=== PATIENT | male | born 1975 | race African-American/Black ===

== ENCOUNTER 2020-08-01 17:37 | Outpatient (CLI) | payer BC, SELFPAY | END 2020-08-01 17:38 | disposition home or self-care (01) | LOC: ANHCOVIDVC 17:37 | PROVIDERS: PCP Internal Medicine | DX: Z23 Encounter for immunization (principal) | CPT/HCPCS: 0001A; 91300 ==

== ENCOUNTER 2020-08-22 16:41 | Outpatient (CLI) | payer BC, SELFPAY | END 2020-08-22 16:42 | disposition home or self-care (01) | LOC: ANHCOVIDVC 16:41 | PROVIDERS: PCP Internal Medicine | DX: Z23 Encounter for immunization (principal) | CPT/HCPCS: 0002A; 91300 ==

== ENCOUNTER 2024-12-25 19:06 | Emergency (ER) | payer OTHER, BC, SELFPAY ==
--- OUTSIDE RECORDS SUMMARY | 2024-12-25 19:08 | XMS_ITS | Clinical Summary ---
Author Organization [facility] Address [address] [place] [address] Care Team Providers Care Negotiations Director Name Role Phone Clinton Roberts MD Unavailable [phone] Unknown, Notinfile Unavailable Unavailable Osvaldo Ernandez MD Unavailable [phone] Jerel Mane MD Primary Care Provider Allergies No known active allergies Medications cyclobenzaprine (FLEXERIL) 10 mg tabletIndication s:Muscle Spasm Take 1 tablet (10 mg total) by mouth 3 (three) times a day as needed for muscle spasms 90 tablet 3 3 Active compression socks, large misc 10 Units daily 10 each 3 Active albuterol HFA (PROVENTIL HFA,VENTOLIN HFA,PROAIR HFA) 90 mcg/actuation inhalerIndicatio ns:Subacute cough Inhale 2 puffs every 6 (six) hours as needed for wheezing 3 each 4 4 Active irbesartan (AVAPRO) 150 mg tablet Take 1 tablet (150 mg total) by mouth nightly 30 tablet 11 4 12/28/19 25 Active sildenafiL (VIAGRA) 50 mg tablet Take 1 tablet (50 mg total) by mouth daily as needed for erectile dysfunction 30 tablet 3 4 Active metoprolol XL (TOPROL-XL) 50 mg extended release tablet TAKE 1 TABLET(50 MG) BY MOUTH DAILY 90 tablet 3 4 Active hydroCHLOROthiaz sen (HYDRODIURIL) 25 mg tablet TAKE 1 TABLET(25 MG) BY MOUTH DAILY 90 tablet 3 4 Active cholecalciferol (VITAMIN D-3) 2000 unit capsule Take 1 capsule (2,000 Units total) by mouth daily 90 capsule 3 5 06/19/19 26 Active acetaminophen (TYLENOL) 325 mg tabletIndication s:Fever,Pain Take 2 tablets (650 mg total) by mouth every 6 (six) hours as needed for pain 30 tablet 3 5 06/19/19 26 Active aspirin 81 mg chewable tabletIndication s:Myocardial Reinfarction Prevention Take 1 tablet (81 mg total) by mouth daily 30 tablet 11 5 06/19/19 26 Active amLODIPine (NORVASC) 10 mg tablet Take 1 tablet (10 mg total) by mouth daily 90 tablet 3 5 Active atorvastatin (LIPITOR) 10 mg tablet Take 1 tablet (10 mg total) by mouth daily 30 tablet 11 5 10/11/19 Active Active Problems Problem Noted Date Diagnosed Date Phantom limb 07/21/2023 Preventative health care 03/11/2023 Overview (04/27/2023): General - A1c (for pts c BP >135/80): Hgb A1C Date Value Ref Range Status 01/30/2023 5.2 4.0 - 5.6 % Final - Lipids (men >35): No results found for: LDL Currently on lipitor 20 (ASCVD 6.5) - AAA (men 65-75 c smoking hx): NA Cancer - Colonoscopy/FIT (age 45-75): Given - Prostate ca screening: Discussed Risks/Benefits:NA - Lung (55-80 c >30 pk-yr hx, and smoking in past 15yrs): NA Infectious Disease - HIV (age 15-65): - HBV (if at high risk): NA - HCV ( [id number]): NA - Gonorrhea/Chlamydia (<24 or increased risk): NA - Syphilis (if increased risk): NA Immunizations - Influenza (annually): Needs - COVID: Needs - Td/Tdap (q10 years): 04/2023 - PPSV23 (age >65, immunocomp, DM, CKD, heart dz, lung dz, liver dz, EtOH, asplenia): Na - PCV13 (age >65, immunocomp, CKD, asplenia): Na - Shingles (age >60): NA - HPV (men <21, MSM <26):NA - HAV (MSM or chronic liver disease): NA - HBV (DM, HIV, MSM, liver dz, CKD, healthcare workers): NA - Meningococcus (asplenia, college students): NA - HiB (asplenia, HSCT): NA Assessment & Plan (04/27/2023 9:42 AM RECOVERY ANALYST): Defers flu/covid vaccinations. Tdap vaccine, HIV testing today FIT testing at home Assessment & Plan (03/11/2023 10:04 PM CDT): FIT test 02/2023. Defers flu and covid until next week when he's home in [place]. Tdap next visit. Primary hypertension 03/11/2023 Overview (04/27/2023): Hx of hypertension. Goal BP has been set at 120/80 by cardiology due to hx of aortic dissection. Currently being managed by Dr. Madrigal and Dr. Malloy in the hypertensive clinic. Taking all 4 of his medications, no issues with them. BP at home going from 105- 120 systolic, no issues with dizziness/lightheadedness/ side effects. Medications: amlodipine 10, metop 50 XL, and hctz 25, lisinopril 10 BP in clinic: 111/69, 117/65 BP at home: BP goes from 105-120 systolic Assessment & Plan (04/27/2023 9:34 AM RECOVERY ANALYST): Blood pressure well controlled on current medications and within goal. Patient has shown he can tolerate systolics down to 105 mmHg without problem. Low concern for other secondary causes of HTN like KARLENE (Stop-bang was 2). No issues with side effects/other lab abnormalities - Maintain current regimen of BP meds - RTC in 6 months for reassessment Assessment & Plan (03/11/2023 10:02 PM CDT): Blood pressure is still not at goal 120/80 with current regimen. Patient more amenable to new meds given current living situation (is currently staying in hotel while part of house is remodeled). Was interested in DASH diet for future. - Gave reading materials for DASH diet, encouraging less processed foods / lower salt - add lisinopril 10 to regimen - repeat BMP in 2-4 weeks - RTC in 1-2 months to titrate BP meds Encounter for surgical after care following surgery of circulatory system 02/24/2023 H/O fasciotomy 01/25/2023 Assessment & Plan (01/28/2023 2:46 PM CDT): Tubigrip to right fasciotomy for dependent edema Assessment & Plan (01/27/2023 2:06 PM CDT): Tubigrip to right fasciotomy for dependent edema Assessment & Plan (01/25/2023 3:53 PM CDT): Tubigrip to right fasciotomy for dependent edema Acute post-operative pain 01/19/2023 Assessment & Plan (01/28/2023 2:46 PM CDT): To be expected following cardiac surgery -Continue PRN Tylenol -Continue PRN Oxycodone -Will add Lidocaine patch Assessment & Plan (01/27/2023 2:06 PM CDT): To be expected following cardiac surgery -Continue PRN Tylenol -Continue PRN Oxycodone -Will add Lidocaine patch Assessment & Plan (01/19/2023 9:08 PM CDT): To be expected following cardiac surgery -Continue PRN Tylenol -Continue PRN Oxycodone -Will add Lidocaine patch Acute blood loss anemia 01/19/2023 Assessment & Plan (01/28/2023 2:45 PM CDT): To be expected post-cardiac surgery -Monitor daily CBC -Hgb 8.1 last night -No active signs of bleeding -Consider transfusion if hgb <7 or if hemodynamically Assessment & Plan (01/27/2023 2:06 PM CDT): To be expected post-cardiac surgery -Monitor daily CBC -Hgb 9.1 last night -No active signs of bleeding -Consider transfusion if hgb <7 or if hemodynamically Assessment & Plan (01/26/2023 1:27 PM CDT): To be expected post-cardiac surgery -Monitor daily CBC -Hgb 8.8 last night -No active signs of bleeding -Consider transfusion if hgb <7 or if hemodynamically Leukocytosis 01/19/2023 Assessment & Plan (01/28/2023 2:50 PM CDT): Likely reactive in the post-op setting -Monitor daily CBC -WBC slowly downtrended incisions with no drainage -UA and 2V CXR negative for sources of infection -No central line -Remains afebrile, but complains of sweating episodes -No additional imaging for leukocytosis per Dr. Armando salazar (-) -blood cultures obtained 2- NGTD -started on empiric abx - vanc ans cefepime x 5 days-completed -Encouraged to perform IS and mobilize with PT/OT -WBC downtrending- consulted Infectious Disease and sent blood cultures-NGTD ID doesn't think Infectious process ok to DC abx Assessment & Plan (01/27/2023 2:08 PM CDT): Likely reactive in the post-op setting -Monitor daily CBC -WBC elevated up at 17.8 incisions with no drainage -UA and 2V CXR negative for sources of infection -No central line -Remains afebrile, but complains of sweating episodes -No additional imaging for leukocytosis per Dr. Armando salazar (-) -blood cultures obtained 92- NGTD -started on empiric abx - vanc ans cefepime x 5 days-ends today -Encouraged to perform IS and mobilize with PT/OT -WBC still elevated 17.8 up from 16.8- consulted Infectious Disease and sent blood cultures Assessment & Plan (01/25/2023 3:44 PM CDT): Likely reactive in the post-op setting -Monitor daily CBC -WBC elevated up at 18 but stable, incisions with no drainage -UA and 2V CXR negative for sources of infection -No central line -Remains afebrile -No additional imaging for leukocytosis per Dr. Roberts -duplex (-) -blood cultures obtained 01/22- NGTD -started on empiric abx - vanc ans cefepime x 5 days -Encouraged to perform IS and mobilize with PT/OT UZMA (acute kidney injury) 01/19/2023 Assessment & Plan (01/28/2023 2:46 PM CDT): UZMA on CKD: -Baseline Cr 1.2-1.4 -Monitor daily BMP, Cr 0.95 last night -Strict I&O -Monitor daily weights -Avoid nephrotoxins -Renally dose medications -Decreased Lasix 40mg daily per Dr. Roberts, monitor renal function with initiation of diuresis Assessment & Plan (01/27/2023 2:06 PM CDT): UZMA on CKD: -Baseline Cr 1.2-1.4 -Monitor daily BMP, Cr 1.17 last night -Strict I&O -Monitor daily weights -Avoid nephrotoxins -Renally dose medications -Decreased Lasix 40mg daily per Dr. Roberts, monitor renal function with initiation of diuresis Assessment & Plan (01/25/2023 3:45 PM CDT): UZMA on CKD: -Baseline Cr 1.2-1.4 -Monitor daily BMP, Cr 1.04 last night -Strict I&O -Monitor daily weights -Avoid nephrotoxins -Renally dose medications -continue Lasix 40mg BID per Dr. Roberts, monitor renal function with initiation of diuresis Above knee amputation of left lower extremity Overview (04/27/2023): Complication of aortic dissection 01/2023. Is being managed by Dr. Ernandez in vascular surgery. Is currently seeing PT/OT for at home therapies. Reports no issues with getting home therapies and is progressing well. Assessment & Plan (04/27/2023 9:34 AM RECOVERY ANALYST): Progressing well from functional POV.. Has close follow up with Dr. Roberts and still seeing PT Encourage seeing PT Assessment & Plan (03/11/2023 10:01 PM CDT): Is already being managed by specialists for this problem. Based on hx, symptoms pain in L leg most likely neuropathic. Patient wants gabapentin but does not want to increase the dose for now. - Refill on gabapentin. - encourage PT/OT - encourage close follow up with Dr. Ernandez Assessment & Plan (01/28/2023 2:45 PM CDT): 01/14/23 Type A dissection c/b LLE ischemia -RLE fasciotomy -AMBULANCE PARAMEDIC with steri-strips present, L AKA dressing intact (+sutures no redness or drainage) -Q4H NV checks BLE -Vascular following, appreciate recs -Ordered [facility] per vascular, he has been fitted -Continue PT/OT -rehab at [facility] Assessment & Plan (01/27/2023 2:05 PM CDT): 01/14/23 Type A dissection c/b LLE ischemia -RLE fasciotomy -ERVIN with steri-strips present, L AKA dressing intact (+sutures no redness or drainage) -Q4H NV checks BLE -Vascular following, appreciate recs -Ordered [facility] per vascular, he has been fitted -Continue PT/OT -rehab at [facility] Assessment & Plan (01/25/2023 3:45 PM CDT): 01/14/23 Type A dissection c/b LLE ischemia -RLE fasciotomy -AMBULANCE PARAMEDIC with steri-strips present, L AKA dressing intact (+sutures no redness or drainage) -Q4H NV checks BLE -Vascular following, appreciate recs -Ordered [facility] per vascular, called this morning, they will come to fit today -Continue PT/OT -rehab at [facility] 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 Complicated by lack of perfusion to left lower extremity, underwent AKA. Still has some residual dissection per imaging. Is being managed by Dr. Madrigal in cardiology, Dr. Roberts in CT surgery and Dr. Ernandez in vascular surgery. Already seeing PT and OT, is progressing well. Assessment & Plan (03/11/2023 9:56 PM CDT): Is in close contact with specialists already managing this disease. Does not report any issues seeing them or progressing with his at home therapy. - Continue to monitor and encourage close followup - Control of BP (see below) Assessment & Plan (01/28/2023 2:46 PM CDT): 01/14/23: S/p OR for repair of type A dissection, innominate artery chimney graft to facilitate cardiopulm bypass, ascending aortic replacement, hemiarch replacement w/ isolation and control of arch vessels by Dr. Roberts and L groin exploration, L common femoral septectomy and patch angio, and L above knee amputation, RLE fasciotomy with closure by Vascular -(01/17) MCT removed -(01/18) PCT removed -01/18/23 TTF -EPW discontinued -Continue Lasix 40mg BID -Monitor telemetry -Start Atorvastatin -Continue ASA 01/19/23 TTE: EF 75% with mild AR -Continue Lovenox for DVT ppx -Continue bowel regimen -Encourage pulmonary hygiene, IS -Continue PT/OT -Aortic change management expert consulted -Post op CTA completed 01/20 -DC planning for rehab Assessment & Plan (01/27/2023 2:06 PM CDT): 01/14/23: S/p OR for repair of type A dissection, innominate artery chimney graft to facilitate cardiopulm bypass, ascending aortic replacement, hemiarch replacement w/ isolation and control of arch vessels by Dr. Roberts and L groin exploration, L common femoral septectomy and patch angio, and L above knee amputation, RLE fasciotomy with closure by Vascular -(01/17) MCT removed -(01/18) PCT removed -01/18/23 TTF -EPW capped and insulated -Continue Lasix 40mg BID -Monitor telemetry -Start Atorvastatin -Continue ASA 01/19/23 TTE: EF 75% with mild AR -Continue Lovenox for DVT ppx -Continue bowel regimen -Encourage pulmonary hygiene, IS -Continue PT/OT -Aortic change management expert consulted -Post op CTA completed 01/20 -DC planning for rehab Assessment & Plan (01/22/2023 2:42 PM CDT): 01/14/23: S/p OR for repair of type A dissection, innominate artery chimney graft to facilitate cardiopulm bypass, ascending aortic replacement, hemiarch replacement w/ isolation and control of arch vessels by Dr. Roberts and L groin exploration, L common femoral septectomy and patch angio, and L above knee amputation, RLE fasciotomy with closure by Vascular -(01/17) MCT removed -(01/18) PCT removed -01/18/23 TTF -EPW capped and insulated -Continue Lasix 40mg BID -Monitor telemetry -Start Atorvastatin -Continue ASA 01/19/23 TTE: EF 75% with mild AR -Continue Lovenox for DVT ppx -Continue bowel regimen -Encourage pulmonary hygiene, IS -Continue PT/OT -Aortic change management expert consulted -Post op CTA completed 01/20 -DC planning for rehab Resistant hypertension 10/30/2020 Dyspnea on exertion 10/30/2020 Localized edema 10/30/2020 Overview (03/11/2023): Patient is reporting swelling in R lower leg. Says the swelling occurs throughout the day when he sits in his wheel chair. It is worse at the end of the day. He denies any shortness of breath or difficulty breathing when lying down at night. Most recent UA does not show proteinuria. TTE 01/19 showed LVEF 75%. No history of HF, liver disease or kidney disease. Is already on anticoagulants (apixaban) Assessment & Plan (03/11/2023 10:17 PM CDT): Most likely dependent edema given localized symptoms, time course throughout the day, and absence of signs / symptoms suspicious for either increased hydrostatic or decreased oncotic pressure. - Compression stockings - RTC 1-2 months to reassess symptoms - Can recheck CMP/ACR then if symptoms have not resolved Nephrolithiasis 09/01/2018 Overview (09/02/2018): Added automatically from request for surgery [id number] Encounters Date Type Department Care Team Description 10/09/2024 11:15 AM CDT Office Visit [facility] [address] [place] [address] [facility] 8th [place] [address] [place] [address] Raquel Spain MD VT (ventricular tachycardia) (HCC) 10/09/2024 Results Follow-Up [facility] [address] [place] [address] [facility] 8th [place] [address] [place] [address] Raquel Spain MD ECG 12 lead 10/02/2024 9:40 AM CDT [address] [address] Aortic arch dissection (HCC) 10/02/2024 Results Follow-Up [facility] [address] [place] [address] [facility] 8th [place] [address] [place] [address] Adan Madrigal MD Lipid panel 09/28/2024 8:00 AM CDT - 09/28/2024 11:59 PM CDT Hospital Encounter [facility] [address] [place] [id number] Adan Madrigal MD Dyspnea on exertion; Dissection of thoracoabdominal aorta (HCC); Aortic arch dissection (HCC); VT (ventricular tachycardia) (HCC) Discharge Disposition: Discharge to home or self care 09/28/2024 Results Follow-Up [facility] [address] [place] [address] Medicine 8th [place] [address] [place] [address] Adan Madrigal MD CTA Heart and Coronary Arteries W Morphology when Performed from Last 3 Months Immunizations Immunization Administration Dates Next Due Tdap 04/27/2023 Surgical History Surgery Date Site/Laterality Comments THYROID SURGERY PARATHYROIDECTOMY CYSTOSCOPY URETERAL STENT PLACEMENT 09/02/18 ASCENDING AORTIC ANEURYSM REPAIR ascending, wayne arch replacement Medical History Medical History Date Comments Kidney stone Aortic dissection (HCC) Hx of AKA (above knee amputation) (HCC) Family History Medical History Relation Name Comments Heart attack Brother No Known Problems Father Hypertension Mother Anesthesia problems Neg Hx Relation Name Status Comments Brother Father Mother Liver Problems Social History Tobacco Use Types Packs/Day Years Used Date Smoking Tobacco: Never Smokeless Tobacco: Never Tobacco Cessation:Counseling Given: Not Answered Alcohol Use Standard Drinks/Week Comments Yes 0 (1 standard drink = 0.6 oz pur e alcohol) social Hunger Vital Sign Answer Date Recorded Within the past 12 months, y ou worried that your food would run out before you got the money to buy more. Never true 04/27/20 23 Within the past 12 months, t he food you bought just didn't last and you didn't have money to get more. Never true 04/27/2023 Personal Safety Answer Date Recorded Have you ever been in or are you currently in a harmful physical or emotional relationship or is someone making you feel afraid or unsafe? Denies 09/08/2023 Sex and Gender Information Value Date Recorded Sex Assigned at Not on file Legal Sex Male 12:49 AM RECOVERY ANALYST Gender Identity Not on file Sexual Orientation Not on file Obstetrics History Last Filed Vital Signs Vital Sign Reading Time Taken Comments Blood Pressure 118/76 10/09/2024 12:05 PM CDT Pulse 93 10/09/2024 12:05 PM CDT Temperature 36.8 C (98.3 F) 09/08/2023 8:40 PM CDT Respiratory Rate 13 09/28/2024 8:25 AM CDT Oxygen Saturation 96% 10/09/2024 12:05 PM CDT Inhaled Oxygen Concentration - - Weight 88.1 kg (194 lb 3.2 oz) 10/09/2024 12:05 PM CDT Height 172.7 cm (5' 8) 10/09/2024 12:05 PM CDT Body Mass Index 29.53 10/09/2024 12:05 PM CDT Plan of Treatment Health Maintenance Due Date Last Done Comments Colon Cancer Screening-Colonoscopy 1974 Depression Screening 1974 Hepatitis C Screening 1974 Prostate Cancer Screening-PSA 1974 Hepatitis B Screening 1992 Regular Well Visit/Exam 18-64 1992 Zoster Vaccine (1 of 2) 2024 Influenza Vaccine (#1) 2025 DTaP/Tdap/Td Vaccine (2 - Td or Tdap) 04/27/2033 04/27/2023 Pneumococcal vaccine <65 Aged Out No longer eligible based on patient's age to complete this topic Medical Devices Implanted Type Area Fitness And Wellness Coordinator Device Identifier Shelf Expiration Date Model / Serial / Lot Terumo Cardio Vascular Gelweave 8mm 30cm Suture Retention Unique Hydrolyzable Abdomen [id number] - [id number] Implanted:Qty: 1 on 01/14/2023 by Clinton Roberts MD at [facility] Graft N/A: Chest Terumo Cardio Vascular [id number] 08/20/2025 [id number] / / [id number] [email or web address] [id number] Hemashield Manzanita 24mm 10mm 50cm Woven Soft 2 Pass Sew - [id number] - [id number] Implanted:Qty: 1 on 01/14/2023 by Clinton Roberts MD at [facility] Graft N/A: Chest [employer] [id number] 07/20/2026 [id number] / [id number] [facility] Patch Vascuguard 0.88cm [id number] - [id number] Implanted:Qty: 1 on 01/14/2023 by Clinton Roberts MD at [facility] Vascular Occlusion Device Left: Chest [employer] [id number] 09/14/2023 [id number] / / [id number] Description:Left femoral art lance Explanted Type Area Fitness And Wellness Coordinator Device Identifier Shelf Expiration Date Model / Serial / Lot Bard Peripheral Vascular 6x6in Patch Thk1.65mm Turin Cardiovascular Ptfe Sterile Latex Free [id number] - [id number] Explanted:Qty: 1 on 01/14/2023 by Clinton Roberts MD at [facility] Other - see comments N/A: Chest Bard Peripheral Vascular [id number] 03/19/2027 [id number] / / [id number] Description:Used for stitchi ng [facility] [id number] Inlay Christopher 6fr 26cm Pusher Fluoro Marker Atraumatic Insertion Latex Free - Sn/A - [id number] Implanted:Qty: 1 on 09/02/2018 by Silvio Montanez MD at [facility] Explanted:Qty: 1 on 09/12/2018 by Amber Pena MD at [facility] Stent Left: Ureter [facility] [id number] 03/29/2023 [id number] / N/A / [id number] [facility] [id number] Inlay Christopher 6fr 26cm Pusher Fluoro Marker Atraumatic Insertion Latex Free - Sn/A - [id number] Implanted:Qty: 1 on 09/12/2018 by Amber Pena MD at [facility] Explanted:Qty: 1 on 10/05/2018 by Kristy Hyatt, SANDRA Stent Left: Ureter [facility] 03/29/2023 [id number] / N/A / [id number] Procedures Procedure Name Priority Date/Time Associated Diagnosis Comments ECG 12-LEAD Routine 10/09/2024 12:01 PM CDT VT (ventricular tachycardia) (HCC) LIPID PANEL Routine 10/02/2024 10:07 AM CDT Aortic arch dissection (HCC) CT HEART MORPHOLOGY AND CORONARY ARTERIES W CONTRAST Schedule Routine, Read Routine (OP Routine) 09/28/2024 8:52 AM CDT Dyspnea on exertion Dissection of thoracoabdominal aorta (HCC) Aortic arch dissection (HCC) VT (ventricular tachycardia) (HCC) from Last 3 Months Results * ECG 12 lead (10/09/2024 12:01 PM CDT) us Raquel Spain MD ECG ORDERABLES Edited Result - Final * Lipid panel (10/02/2024 10:07 AM CDT) Cholesterol 156 30 - 199 mg/dL Comment: Interpretive Data Ages < or = 19 years Acceptable: <170 mg/dL Borderline high: 170-199 mg/dL High: >or= 200 mg/dL Ages > or = 20 years Desirable: <200 mg/dL Borderline high: 200-239 mg/dL High: >or= 240 mg/dL Literature References: 1. Expert Panel on Integrated Guidelines for Cardiovascular Health and Risk Reduction in Children and Adolescents. Pediatrics 2011;128:S213 2. NCEP Expert Panel. Circulation 2004;110:227 Current Interpretive Data was last revised on 2018. Triglycerides 120 <=149 mg/dL MODESTO DRISCOLL (KRISTIN) Comment: Interpretive Data Ages < or = 9 years Acceptable: <75 mg/dL Borderline high: 75-99 mg/dL High: >or= 100 mg/dL Ages 10 to 20 years Acceptable: <90 mg/dL Borderline high: 90-129 mg/dL High: >or= 130 mg/dL Ages > or = 20 years Desirable: <150 mg/dL Borderline high: 150-199 mg/dL High: 200-499 mg/dL Very high: >or= 499 mg/dL Literature References: 1. Expert Panel on Integrated Guidelines for Cardiovascular Health and Risk Reduction in Children and Adolescents. Pediatrics 2011;128:S213 2. NCEP Expert Panel. Circulation 2004;110:227 Current Interpretive Data was last revised on 2018. HDL 41 >=40 mg/dL MODESTO GONZALEZ H (KRISTIN) Comment: Interpretive Data Ages < or = 19 years Acceptable: >45 mg/dL Borderline low: 40-45 mg/dL Low: <40 mg/dL Ages > or = 20 years Desirable: >or= 60 mg/dL Low: <40 mg/dL Literature References: 1. Expert Panel on Integrated Guidelines for Cardiovascular Health and Risk Reduction in Children and Adolescents. Pediatrics 2011;128:S213 2. NCEP Expert Panel. Circulation 2004;110:227 Current Interpretive Data was last revised on 2018. LDL, calculated 93 <=129 mg/dL MODESTO DRISCOLL (KRISTIN) Comment: Interpretive Data Ages < or = 19 years Acceptable: <110 mg/dL Borderline high: 110-129 mg/dL High: >or= 130 mg/dL Ages > or = 20 years Optimal: <100 mg/dL Near optimal: 100-129 mg/dL Borderline high: 130-159 mg/dL High: >160 mg/dL Calculated using the Alex LDL-C estimating equation. This equation was implemented on 2024. Prior to this date LDL-C was estimated using the Friedewald equation. Literature References: 1. Expert Panel on Integrated Guidelines for Cardiovascular Health and Risk Reduction in Children and Adolescents. Pediatrics 2011;128:S213 2. NCEP Expert Panel. Circulation 2004;110:227 3. Alex M et al. SAW Cardiol. 2020 September 20;5(5):540-548. doi: 10.1001/jamacardio.2020.0013 Current Interpretive Data was last revised on 2024. Non-HDL Cholesterol 115 mg/dL MODESTO DRISCOLL (KRISTIN) Comment: Interpretive Data Ages < or = 19 years Acceptable: <120 mg/dL Borderline high: 120-144 mg/dL High: >145 mg/dL Ages > or = 20 years When triglycerides are >200 mg/dL, Non-HDL cholesterol is a secondary target of therapy with treatment goals that are 30 mg/dL greater than the LDL cholesterol target. Literature References: 1. Expert Panel on Integrated Guidelines for Cardiovascular Health and Risk Reduction in Children and Adolescents. Pediatrics 2011;128:S213 2. NCEP Expert Panel. Circulation 2004;110:227 Current Interpretive Data was last revised on 2018. Chol/HDL ratio 4 CIERA DRISCOLL (KRISTIN) Blood 10/02/2024 10:0 7 AM CDT 10/02/2024 11:29 AM CDT us Adan Madrigal MD LAB BLOOD ORDERABLES F inal Result MODESTO DRISCOLL (KRISTIN) 1 [facility] [place] [address] * CTA Heart and Coronary Arteries W Morphology when Performed (09/28/2024 8:52 AM CDT) Anatomical Region Laterality Modality Chest N/A Computed Tomogra phy 09/28/2024 10:0 2 AM CDT Impressions 09/28/2024 2:02 PM CDT 1. Nonobstructive coronary artery atherosclerosis with mild disease in the left anterior descending and left circumflex coronary arteries. 2. Coronary artery calcium score is 43. 3. Imaged portions of aorta remain unchanged compared to the CT from 01/09/2024; however, the iliamna thoracic aorta and graft repair are incompletely imaged on this study. Dictated by: Kaelyn Virk M.D. The radiology attending physician has personally reviewed this study, and had reviewed and/or edited this written report and agrees with it. Electronically signed by: Vitor Nascimento M.D. 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 Evaluation for follow-up of type A thoracic aorta dissection. TECHNIQUE: CT angiography of the coronary arteries was performed after the administration of 95 mL of Optiray 350. Images were also obtained precontrast for the purposes of calcium scoring. 0 mg of metoprolol was administered intravenously, and 2 puffs of sublingual nitroglycerin was administered prior to the examination. The patient's heart rate and blood pressure at the time of the examination were 60 beats per minute and 112/71 mmHg. Images were transferred to a 3D workstation for additional post-processing. FINDINGS: The coronary arteries are right system dominant. There is no anomalous coronary origin or course. Left coronary system: Left main: No calcification. Left anterior descending: Calcified plaque in proximal left anterior descending resulting in mild (30%) stenosis. No calcification in the mid to distal left anterior descending. Left circumflex: Calcified plaque in proximal left circumflex resulting in mild (30%) stenosis. No calcification in distal left circumflex. Right coronary system: No calcification. The calculated calcium score is 43. Other findings: Mild atelectasis bilateral lungs. Postsurgical changes of median sternotomy. Note is made of chimney graft from prior aortotomy site with expected, residual chimney graft changes. Supracoronary ascending aortic graft repair. Imaged portions of aorta remain unchanged compared to 01/09/2024 CTA chest abdomen pelvis; however, the aorta is incompletely imaged. Residual descending thoracic aorta dissection is enlarged from index CTA chest abdomen pelvis dated 01/14/2023. No pericardial effusion. Evidence of mitral annular destruction. Procedure Note Vitor Nascimento MD - 09/28/2024 EXAMINATION: CORONARY CT ANGIOGRAM HISTORY: 49-year-old male with hypertension, and prior type A dissection (status post innominate artery chimney graft, ascending aortic replacement w/ 24 mm Hemashield [place], and hemiarch replacement with isolation - 2022) who presented to us outpatient change management expert reporting intermittent, nonexertional, chest symptoms.He was found to have nonsustained ventricular tachycardia on ambulatory monitor. Evaluation for follow-up of type A thoracic aorta dissection. TECHNIQUE: CT angiography of the coronary arteries was performed after the administration of 95 mL of Optiray 350. Images were also obtained precontrast for the purposes of calcium scoring. 0 mg of metoprolol was administered intravenously, and 2 puffs of sublingual nitroglycerin was administered prior to the examination. The patient's heart rate and blood pressure at the time of the examination were 60 beats per minute and 112/71 mmHg. Images were transferred to a 3D workstation for additional post-processing. FINDINGS: The coronary arteries are right system dominant. There is no anomalous coronary origin or course. Left coronary system: Left main: No calcification. Left anterior descending: Calcified plaque in proximal left anterior descending resulting in mild (30%) stenosis. No calcification in the mid to distal left anterior descending. Left circumflex: Calcified plaque in proximal left circumflex resulting in mild (30%) stenosis. No calcification in distal left circumflex. Right coronary system: No calcification. The calculated calcium score is 43. Other findings: Mild atelectasis bilateral lungs. Postsurgical changes of median sternotomy. Note is made of chimney graft from prior aortotomy site with expected, residual chimney graft changes. Supracoronary ascending aortic graft repair. Imaged portions of aorta remain unchanged compared to 01/09/2024 CTA chest abdomen pelvis; however, the aorta is incompletely imaged. Residual descending thoracic aorta dissection is enlarged from index CTA chest abdomen pelvis dated 01/14/2023. No pericardial effusion. Evidence of mitral annular destruction. IMPRESSION: 1. Nonobstructive coronary artery atherosclerosis with mild disease in the left anterior descending and left circumflex coronary arteries. 2. Coronary artery calcium score is 43. 3. Imaged portions of aorta remain unchanged compared to the CT from 01/09/2024; however, the iliamna thoracic aorta and graft repair are incompletely imaged on this study. Dictated by: Kaelyn Virk M.D. The radiology attending physician has personally reviewed this study, and had reviewed and/or edited this written report and agrees with it. Electronically signed by: Vitor Nascimento M.D. Adan Madrigal MD IMG CT PROCEDURES Laverne l Result from Last 3 Months Insurance [employer] [facility] OPEN ACCESS CIGNA BLUE ACC CHOICE OOS ANTHEM ACCESS CHOICE BLUE ACC CHOICE OOS [facility] ACCESS CHOICE Advance Directives For more information, please contact: [phone] * Full Code (Latest Code Status on File) Date Activated Date Inactivated Comments 01/14/2023 10:37 PM 01/29/2023 7:10 PM * Full Code Date Activated Date Inactivated Comments 01/14/2023 10:07 PM 01/14/2023 10:37 PM * Full Code Date Activated Date Inactivated Comments 09/02/2018 10:36 AM 09/02/2018 10:01 PM Care Teams Negotiations Director Relationship Specialty Start Date End Date Jerel Mane MD [address] [facility] [address] [place] [address] PCP - General Internal Medicine 03/11/23 Clinton Roberts MD Consulting Physician General Surgery 01/28/23 Unknown, Notinfile 01/28/23 Osvaldo Ernandez MD [address] [facility] [address] [place] [address] Surgeon Vascular Surgery 01/28/23
--- OUTSIDE RECORDS SUMMARY | 2024-12-25 19:09 | XMS_ITS | Referral Summary ---
Author Organization [facility] Address [address] [place] [address] Care Team Providers Care Installation Service Representative Name Role Phone Clinton Roberts MD Unavailable [phone] Unknown, Notinfile Unavailable Unavailable Osvaldo Ernandez MD Unavailable [phone] Jerel Mane MD Primary Care Provider Encounters Date Type Department Care Team Description 10/09/2024 Results Follow-Up [facility] Cardiology [address] [facility] Medicine [address]th [place] [address] [place] [address] Raquel Spain MD ECG 12 lead 10/09/2024 11:15 AM CDT Office Visit [facility] Cardiology [address] [facility] Medicine [address] [place] [address] [place] [address] Raquel Spain MD [place] (ventricular tachycardia) (HCC) 10/02/2024 Results Follow-Up [facility] Cardiology [address] [facility] 8th [place] [address] [place] [address] Adan Madrigal MD Lipid panel 10/02/2024 9:40 AM CDT Lab [address] [address] Aortic arch dissection (HCC) 09/28/2024 Results Follow-Up [facility] Cardiology [address] [facility] Medicine [address]th [place] [address] [place] [address] Adan Madrigal MD CTA Heart and Coronary Arteries W Morphology when Performed 09/28/2024 8:00 AM CDT - 09/28/2024 11:59 PM CDT Hospital Encounter [facility] [address] [place] [address] Adan Madrigal MD Dyspnea on exertion; Dissection of thoracoabdominal aorta (HCC); Aortic arch dissection (HCC); VT (ventricular tachycardia) (HCC) Discharge Disposition: Discharge to home or self care from Last 3 Months Allergies No known active allergies Medications cyclobenzaprine [...] mouth daily 30 tablet 11 5 10/11/19 26 Active Active Problems Problem Noted Date Diagnosed [...] at high risk): NA - HCV ( [id number]): NA - Gonorrhea/Chlamydia (<24 or increased risk): [...] NA Assessment & Plan (04/27/2023 9:42 AM LOAN BROKER): Defers flu/covid vaccinations. Tdap vaccine, HIV testing today FIT testing at home Assessment & Plan (03/11/2023 10:04 PM CDT): FIT test 02/2023. Defers flu and covid until next week when he's home in [place]. Tdap next visit. Primary hypertension 03/11/2023 Overview [...] systolic Assessment & Plan (04/27/2023 9:34 AM LOAN BROKER): Blood pressure well controlled on current medications [...] Dr. Armando salazar (-) -blood cultures obtained 9/2- NGTD -started on empiric abx - vanc [...] Dr. Armando salazar (-) -blood cultures obtained 9/2- NGTD -started on empiric abx - vanc [...] Dr. Armando salazar (-) -blood cultures obtained 9/2- NGTD -started on empiric abx - vanc [...] well. Assessment & Plan (04/27/2023 9:34 AM LOAN BROKER): Progressing well from functional POV.. Has close [...] A dissection c/b LLE ischemia -RLE fasciotomy -LEAVE SPECIALIST with steri-strips present, L AKA dressing intact (+sutures no redness or drainage) -Q4H NV checks BLE -Vascular following, appreciate recs -Ordered Ampushield per vascular, he has been fitted -Continue PT/[place] Assessment & Plan (01/27/2023 2:05 PM CDT): 01/14/23 Type A dissection c/b LLE ischemia -RLE fasciotomy -ERVIN with steri-strips present, L AKA dressing intact (+sutures no redness or drainage) -Q4H NV checks BLE -Vascular following, appreciate recs -Ordered Ampushield per vascular, he has been fitted -Continue PT/OT -[place] Assessment & Plan (01/25/2023 3:45 PM CDT): 01/14/23 Type A dissection c/b LLE ischemia -RLE fasciotomy -ERVIN with steri-strips present, L AKA dressing intact (+sutures no redness or drainage) -Q4H [place] checks BLE -Vascular following, appreciate recs -Ordered Ampushield per vascular, called this morning, they will come to fit today -Continue PT/OT -[place] Dissection of thoracoabdominal aorta 01/14/2023 Assessment & [...] -Encourage pulmonary hygiene, IS -Continue PT/OT -Aortic supervisor drying consulted -Post op CTA completed 01/20 -DC [...] -Encourage pulmonary hygiene, IS -Continue PT/OT -Aortic supervisor drying consulted -Post op CTA completed 01/20 -DC [...] -Encourage pulmonary hygiene, IS -Continue PT/OT -Aortic supervisor drying consulted -Post op CTA completed 01/20 -DC [...] (09/02/2018): Added automatically from request for surgery [id number] Immunizations Immunization Administration Dates Next Due Tdap 04/27/2023 Social History Tobacco Use Types Packs/Day Years [...] on file Legal Sex Male 12:49 AM LOAN BROKER Gender Identity Not on file Sexual Orientation Not on file Last Filed Vital Signs Vital Sign Reading [...] 10/09/2024 12:05 PM CDT Plan of Treatment Not on file Medical Devices Implanted Type Area Reel Worker Device Identifier Shelf Expiration Date Model / Serial / Lot Terumo Cardio Vascular Gelweave 8mm 30cm Suture Retention Unique Hydrolyzable Abdomen [id number] - [id number] Implanted:Qty: 1 on 01/14/2023 by Clinton Roberts MD at [facility] Graft N/A: Chest Ter[employer] Cardio Vascular [id number] 08/20/2025 [id number] / / [id number] [employer] [id number] Hemashield [place] 24mm 10mm 50cm Woven Soft 2 Pass Sew - [id number] - [id number] Implanted:Qty: 1 on 01/14/2023 by Clinton Roberts MD at [facility] Graft N/A: Chest [employer] [id number] 07/20/2026 [id number] / [id number] [employer] [place] Patch Vascuguard 0.88cm [id number] - [id number] Implanted:Qty: 1 on 01/14/2023 by Clinton Roberts MD at [facility] Vascular Occlusion Device Left: Chest [employer] Kailey [id number] 09/14/2023 [id number] / / [id number] Description:Left femoral art lance Explanted Type Area Reel Worker Device Identifier Shelf Expiration Date Model / Serial / Lot Bard Peripheral [employer] 6x6in Patch Thk1.65mm [place] [employer] Ptfe Sterile Latex Free [id number] - [id number] Explanted:Qty: 1 on 01/14/2023 by Clinton Roberts MD at [facility] Other - see comments N/A: Chest [employer] [id number] 03/19/2027 [id number] / / [id number] Description:Used for stitchi ng [employer] [id number] Inlay [place] 6fr 26cm Pusher Fluoro Marker Atraumatic Insertion Latex Free - Sn/A - [id number] Implanted:Qty: 1 on 09/02/2018 by Silvio Montanez MD at [facility] Explanted:Qty: 1 on 09/12/2018 by Amber Pena MD at [facility] Stent Left: Ureter [employer] [id number] 03/29/2023 [id number] / N/A / [id number] [employer] [id number] Inlay [place] 6fr 26cm Pusher Fluoro Marker Atraumatic Insertion Latex Free - Sn/A - [id number] Implanted:Qty: 1 on 09/12/2018 by Amber Pena MD at [facility] Explanted:Qty: 1 on 10/05/2018 by Kristy Hyatt NP Stent Left: Ureter [employer] 03/29/2023 [id number] / N/A / [id number] Procedures Procedure Name Priority Date/Time Associated Diagnosis [...] on 2018. HDL 41 >=40 mg/dL MODESTO Avila (KRISTIN) Comment: Interpretive Data Ages < or [...] NCEP Expert Panel. Circulation 2004;110:227 3. Alex Herrera. SAW Cardiol. 2020 September 20;5(5):540-548. doi: 10.1001/jamacardio.2020.0013 [...] LAB BLOOD ORDERABLES F inal Result MODESTO YAMILA ([place]ANTA) 1 [facility] [place] [address] * CTA Heart and Coronary Arteries W [...] to the CT from 01/09/2024; however, the [place] thoracic aorta and graft repair are incompletely [...] ascending aortic replacement w/ 24 mm Hemashield [place], and hemiarch replacement with isolation - 2022) who presented to us outpatient supervisor drying reporting intermittent, nonexertional, chest symptoms.He was found [...] ascending aortic replacement w/ 24 mm Hemashield [place], and hemiarch replacement with isolation - 2022) who presented to us outpatient supervisor drying reporting intermittent, nonexertional, chest symptoms.He was found [...] to the CT from 01/09/2024; however, the [place] thoracic aorta and graft repair are incompletely imaged on this study. Dictated by: Kaelyn Virk M.D. The radiology attending physician has personally reviewed this study, and had reviewed and/or edited this written report and agrees with it. Electronically signed by: Vitor Nascimento M.D. Adan Madrigal MD IM CT PROCEDURES Laverne l Result from Last 3 Months Insurance [facility] CIGNA OPEN ACCESS CIGNA BLUE ACC CHOICE OOS ANTHEM ACCESS CHOICE ANTHEM ACCESS CHOICE Advance Directives For more information, please contact: [phone] * Full Code (Latest Code Status on File) Date Activated Date Inactivated Comments 01/14/2023 10:37 PM 01/29/2023 7:10 PM * Full Code Date Activated Date Inactivated Comments 01/14/2023 10:07 PM 01/14/2023 10:37 PM * Full Code Date Activated Date Inactivated Comments 09/02/2018 10:36 AM 09/02/2018 10:01 PM Care Teams Installation Service Representative Relationship Specialty Start Date End Date Jerel Mane MD [address] [address] PCP - General Internal Medicine 03/11/23 Clinton Roberts MD Consulting Physician General Surgery 01/28/23 Unknown, Notinfile 01/28/23 Osvaldo Ernandez MD [address] [facility] [address] [place] [address] Surgeon Vascular Surgery 01/28/23
--- OUTSIDE RECORDS SUMMARY | 2024-12-25 19:09 | XMS_ITS | Clinical Summary ---
Author Organization [facility] Address [address] [place] [address] Phone Care Team Providers Care Pulley Maintainer Name Role Phone Provider, None Primary Care Provider Unavailabl e Allergies No known active allergies Medications amLODIPine (NORVASC) 10 MG Tablet 2 Active hydroCHLOROthia zide 25 MG Tablet 2 Active triamcinolone (KENALOG) 0.025 % Ointment Application Site: apply to affected area twice daily. 80 g 1 2 Active Active Problems No known active problems Social History Tobacco Use Types Packs/Day Years Used Date Smoking Tobacco: Never Smokeless Tobacco: Never Alcohol Use Standard Drinks/Week Comments Yes 0 (1 standard drink = 0.6 oz pur e alcohol) Sex and Gender Information Value Date Recorded Sex Assigned at Not on file Legal Sex Male 10:36 PM CDT Gender Identity Not on file Sexual Orientation Not on file Last Filed Vital Signs Vital Sign Reading Time Taken Comments Blood Pressure 158/88 03/27/2022 4:12 PM CDT Pulse 80 03/27/2022 4:12 PM CDT Temperature 37 C (98.6 F) 03/27/2022 4:12 PM CDT Respiratory Rate 16 03/27/2022 4:12 PM CDT Oxygen Saturation 98% 03/27/2022 4:12 PM CDT Inhaled Oxygen Concentration - - Weight - - Height - - Body Mass Index - - Plan of Treatment Health Maintenance Due Date Last Done Comments Hepatitis C Virus (HCV) Screening 1974 TdaP Immunization 1974 Hepatitis B Immunization (1 of 3 - 19+ 3-dose series) 1993 Cologuard 2019 Colonoscopy 2019 Colorectal Cancer Screening 2019 Immunochemical Fecal Occult Blood 2019 SARS-COV-2 Immunization ( - 2023- season) 2024 05/08/2021, 08/22/2020, 08/01/2020 Pneumococcal Immunization (5 0+ years) (1 of 1 - PCV) 2024 Zoster Immunization (1 of 2) 2024 Influenza Immunization (#1) 2025 Respiratory Syncytial Virus (RSV) Immunization (Adult) (1 - 1-dose 75+ series) 2049 Human Papillomavirus (HPV) Immunization Aged Out No longer eligible b ased on patient's age to complete this topic Meningococcal Immunization (ACWY) Aged Out No longer eligible b ased on patient's age to complete this topic Rotavirus Immunization Aged Out No lo nger eligible based on patient's age to complete this topic Insurance Care Teams Pulley Maintainer Relationship Specialty Start Date End Date Provider, None [place] PCP - General 03/27/22
[2024-12-25 19:16] VITALS: BP 125/84; PULSE 77; RESP 20; TEMP 36.7; O2SAT 99
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
== END 2024-12-25 19:48 | disposition home or self-care (01) ==
PROVIDERS: Emergency Provider Nurse Practitioner Family
DX: M25.511 Pain in right shoulder (principal); I71.00 Dissection of unspecified site of aorta; Z89.612 Acquired absence of left leg above knee
CPT/HCPCS: 99203; G0463